=== PATIENT | female | born 1960 | race Caucasian/White ===

== ENCOUNTER → 2017-07-22 | Outpatient (CLI) | payer BC ==
[~2017-07-22] MED LIST: IBUPROFEN; YASMIN 28 TABLE1 TAB; ZESTORETIC 10/11 TAB
--- NOTE | ~2017-07-22 | MR104 ---
[facility] A Service of [facility] & [facility] RADIOLOGY TEXT RESULTS PATIENT: JONATHON SU [facility] 60 UN[facility] #: [id number] AGE: [address]: Dylan Morgan SEX: F ORDER DR: [id number] [facility] [address] [place], [place] [address] [id number] O MR#: [id number] Acc #: [id number] NAME: JONATHON SU : 1960 SEX: F STUDY DATE/TIME: 07/22/2017 6:58 UNIT: [facility] ROOM: STUDY DESCRIPTION: MR Knee Wo Contrast Rt Attending Physician: Dylan Morgan P.A.-C- Referring Physician: Joycelyn Campbell Ordering Physician: Physician Non-Staff Primary Care Physician: Sadie Barone M.D. MRI CENTER REPORT This report is preliminary unless electronic signature is present. EXAM Right knee MRI without contrast, 07/22/2017 HISTORY 56-year-old female with chronic right knee pain for several years. Increasing instability over the past 1 year. Patient states pain is mostly anterior and medial. Patient denies any prior right knee surgery or recent trauma. COMPARISON Right knee MRI, 04/02/2009 TECHNIQUE Routine unenhanced multiplanar, multisequence high field MR imaging of the right knee was performed. FINDINGS Examination is mildly limited by motion artifact on multiple sequences. Allowing for this, there is a diminutive, slightly truncated appearance of the posterior horn and body segment medial meniscus. The morphology could suggest prior partial medial meniscectomy although the patient denies any prior right knee surgery. Correlation with surgical history is recommended. If the patient has not had prior surgery, then the findings are consistent with tears of the posterior horn and body segment medial meniscus. There is a suspected small vertical radial tear of the posterior horn near the posterior root attachment and vertical radial tear of the body segment. There is some questionable longitudinal horizontal oblique signal abnormality contacting the superior articular surface of the posterior horn lateral meniscus. Motion artifact versus small meniscus tear not excluded. Cruciate ligaments are intact. There is a high-grade partial thickness tear of the medial collateral ligament at the femoral attachment. Lateral STS. [facility] A Service of [facility] & [facility] RADIOLOGY TEXT RESULTS PATIENT: JONATHON SU LOCATION: [facility] : 60 UNIT #: [id number] AGE: [address]: Dylan Morgan SEX: F ORDER DR: collateral ligament complex is intact. Extensor mechanism is intact. No significant joint effusion. There is a thin popliteal cyst measuring approximately 5.8 cm in length. Patellar articular cartilage appears intact. 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 Lateral compartment articular cartilage appears intact. There is moderate to high-grade generalized chondral thinning along the weight bearing surfaces in the medial compartment. Bone marrow signal is within normal limits. Visualized musculature is unremarkable. IMPRESSION 1. Diminutive/truncated appearance of the posterior horn and body segment medial meniscus. The morphology could suggest prior partial medial meniscectomy although the patient denies any prior right knee surgery. Correlation with surgical history is recommended. If the patient has not had prior knee surgery, then the findings would be consistent with a medial meniscus tear. Suspected vertical radial tears of the posterior horn near the posterior root attachment as well as the body segment. 2. There is some questionable longitudinal horizontal oblique signal in the posterior horn lateral meniscus which appears to contact the superior articular surface. There is some motion artifact on the examination and the findings could represent motion artifact versus a small nondisplaced meniscus tear. 3. Cruciate ligaments appear intact. 4. Grade 2 MCL sprain/partial thickness tear at the femoral attachment. 5. Generalized moderate to high-grade chondral thinning along the weight bearing surfaces in the medial compartment. 6. Small focus of low grade chondromalacia inferior medial femoral trochlea. 7. Thin popliteal cyst measuring proximally 5.8 cm in length. Dictated by... Rock De M.D. THIS IS AN ELECTRONICALLY VERIFIED REPORT Rock De M.D. at 07/22/2017 3:34 PM Chayo TD: 07/22/2017 09:05 JOB #: [id number] MRI CENTER REPORT Page 1 of 1 COPY
== END | disposition home or self-care (01) ==
LOC: CMRI 05:53
DX: M25.461 Effusion, right knee (principal); M25.561 Pain in right knee; M94.261 Chondromalacia, right knee; Z98.890 Other specified postprocedural states
CPT/HCPCS: 73721